=== PATIENT | female | born 1960 | race Caucasian/White ===

== ENCOUNTER 2018-02-10 02:18 | Emergency (ER) | payer OTHER ==
[~2018-02-10] VITALS: Ht 154.9 cm; Wt 90.9 kg
[~2018-02-10 02:18] MED LIST: ASPIR 8181 M1 PO; CORTIZONE-1028 GM TP; LOVASTATIN20 MG PO; PHENTERMINE H37.5 MG PO; PRILOSEC20 MG PO; TRAZODONE HCL50 MG PO; ZITHROMAX Z-PA250 MG PO
[2018-02-10 05:07] LABS: HEMATOCRIT 41.4 % (36.0-46.0); HEMOGLOBIN 14.4 G/DL (11.9-15.5); MCH 30.3 PG (29.0-34.0); MCHC 34.8 G/DL (30.0-36.0); MCV 87.2 FL (83-99); PLATELET COUNT 259 K/uL (156-360); RBC DIS.WIDTH-CV 12.3 % (11.8-14.6); RBC DIS.WIDTH-SD 39.7 % (39-53); RED BLOOD COUNT 4.75 M/uL (3.80-5.20); WHITE BLOOD COUNT 9.9 K/uL (4.1-10.2)
[2018-02-10 05:20] LABS: CHLORIDE 104 mEq/L (99-109); POTASSIUM 4.5 mEq/L (3.7-5.4); SODIUM 140 mEq/L (136-147)
[2018-02-10 05:22] LABS: GLUCOSE 107 mg/dL (70-99)
[2018-02-10 05:26] LABS: GFR ESTIMATE (CALCULATED) > 59 mL/min/
[2018-02-10 05:27] LABS: UREA NITROGEN (BUN) 18 mg/dL (9-23)
[2018-02-10] MEDS ORDERED: HYCODAN SYRUP480 ML PO (05:45)
[2018-02-10 06:36] VITALS: BP 123/69
== END 2018-02-10 06:42 | disposition home or self-care (01) ==
LOC: EME 02:18
PROVIDERS: Emergency Medicine
DX: J18.9 Pneumonia, unspecified organism (principal); J02.9 Acute pharyngitis, unspecified; F32.9 Major depressive disorder, single episode, unspecified
CPT/HCPCS: 71046; 80048; 85027; 87651 90; 94640; J1885; J7030

== ENCOUNTER 2018-05-08 17:19 | Emergency (ER) | payer OTHER ==
[~2018-05-08] VITALS: Ht 154.9 cm; Wt 91.3 kg
[~2018-05-08 17:19] MED LIST changes: +HYCODAN SYRUP480 ML PO
[2018-05-08 18:54] LABS: HEMATOCRIT 41.7 % (36.0-46.0); HEMOGLOBIN 14.4 G/DL (11.9-15.5); MCH 29.8 PG (29.0-34.0); MCHC 34.5 G/DL (30.0-36.0); MCV 86.2 FL (83-99); PLATELET COUNT 227 K/uL (156-360); RBC DIS.WIDTH-CV 12.2 % (11.8-14.6); RBC DIS.WIDTH-SD 38.5 % (39-53); RED BLOOD COUNT 4.84 M/uL (3.80-5.20); WHITE BLOOD COUNT 8.7 K/uL (4.1-10.2)
[2018-05-08 19:15] LABS: CHLORIDE 104 mEq/L (99-109); POTASSIUM 4.2 mEq/L (3.7-5.4); SODIUM 139 mEq/L (136-147)
[2018-05-08 19:16] LABS: GLUCOSE 102 mg/dL (70-99)
[2018-05-08 19:20] LABS: CREATININE 1.1 mg/dL (0.6-1.3); GFR ESTIMATE (CALCULATED) 55 mL/min/
[2018-05-08 19:21] LABS: UREA NITROGEN (BUN) 20 mg/dL (9-23)
[2018-05-08] MEDS ORDERED: ZITHROMAX250 MG PO (22:19)
[2018-05-08 22:29] VITALS: BP 132/78
== END 2018-05-08 22:29 | disposition home or self-care (01) ==
LOC: EME 17:19
PROVIDERS: Emergency Medicine
DX: B34.9 Viral infection, unspecified (principal); E04.1 Nontoxic single thyroid nodule
CPT/HCPCS: 70491; 71046; 80048; 85027; 87651 90; 99281; 99284; J1885; J7030